=== PATIENT | female | born 1935 | race Caucasian/White ===

== ENCOUNTER 2018-01-18 13:58 | Outpatient (CLI) | payer OTHER ==
[2018-01-18] MEDS ORDERED: iohexol 300mg/ml 100ml inj. ONE (14:02)
== END 2018-01-18 23:59 | disposition home or self-care (01) ==
LOC: 64 CT 13:58
PROVIDERS: ATTEND Internal Medicine
DX: J90 Pleural effusion, not elsewhere classified (principal); K44.9 Diaphragmatic hernia without obstruction or gangrene; N28.89 Other specified disorders of kidney and ureter
CPT/HCPCS: 74177; J7030; Q9967